=== PATIENT | female | born 1940 | race Caucasian/White ===

== ENCOUNTER → 2017-04-11 | Outpatient (CLI) | payer MEDICARE, BC ==
--- NOTE | 2017-04-11 13:01 | MR ---
EXAMINATION TYPE: MR brain wo/w con DATE OF EXAM: 04/11/2017 COMPARISON: Outside brain MRI report December 01, 2015. HISTORY: History of breast cancer with new onset confusion TECHNIQUE: Multiplanar, multisequence images of the brain and brainstem is performed without and with IV contras t, utilizing 10 mL intravenous MultiHance . FINDINGS: Diffusion weighted images demonstrate no evidence of a recent infarct or other diffusion ab normality. There is no worrisome extra-axial fluid collection. There is ventricular and sulcal promi nence consistent with diffuse mild age-related cerebral atrophy. There are focal and confluent areas of T2 hyperintensity throughout the white matter bilaterally. Lesions are nonspecific in appearance a nd distribution but most likely on basis of product of chronic small vessel ischemic change in patien t this age. There is small area of old infarct high posterior right frontal lobe near axial image 25 abutting central sulcus and larger area of encephalomalacia or infarct involving the inferior medial left occipital lobe near axial image 13 confirmed on coronal image 34. Midline structures demonstrate normal morphology. The craniocervical junction appears within normal limits. Post contrast images demonstrate no abnormal enhancement. The dural venous sinuses appear pa tent. The visualized sinuses are clear and the globes are intact. IMPRESSION: 1. There is mild diffuse age cerebral atrophy with moderate to severe chronic small vessel ischemic c hange as well as old infarcts noted, these old infarcts are detailed on outside MRI report. 2. No evidence of a recent infarct or suspicious enhancing intraparenchymal mass to suggest new metas tatic disease. A Document Only message has been documented for Campbell Dominguez MD in the [employer] system on 04/11/2017 12:58 PM, Message ID [id number].
== END | disposition home or self-care (01) ==
LOC: RADMRIMAIN 11:47
PROVIDERS: ATTEND Internal Medicine Hematology & Oncology
DX: C50.919 Malignant neoplasm of unspecified site of unspecified female breast (principal); G31.89 Other specified degenerative diseases of nervous system; I67.82 Cerebral ischemia; R41.0 Disorientation, unspecified
CPT/HCPCS: 70553; A9577

== ENCOUNTER → 2017-05-27 | Outpatient (CLI) | payer MEDICARE, BC ==
[2017-05-27 10:47] LABS: Blood Urea Nitrogen 12 mg/dL (7-17); Non-African American GFR(MDRD) >60 (>60 ml/min/1.73 sqM)
--- NOTE | 2017-05-27 13:17 | CT ---
EXAMINATION TYPE: CT ChestAbdPelvis w con DATE OF EXAM: 05/27/2017 COMPARISON: Prior CT abdomen pelvis 06/09/2015, prior chest 04/19/2015 HISTORY: Patient has no complaints at time of service. Follow up study for known breast CA. CT DLP: 994 mGycm Automated exposure control for dose reduction was used. CONTRAST: CT scan of the chest, abdomen and pelvis is performed with Oral Contrast and with IV Contrast, patien t injected with 100 mL of Omnipaque 300. FINDINGS: LUNGS: The lungs show a similar appearance, some improved aeration in the lingula, there is no concer earnest parenchymal mass or nodule identified. There is no pleural effusion or pneumothorax seen. The tracheobronchial tree is patent. MEDIASTINUM: There are no greater than 1 cm hilar or mediastinal lymph nodes. No pericardial effusi on is seen. AORTA: No significant abnormality is seen. OTHER: Bilateral breast prostheses are present status post mastectomies. LIVER/GB: Liver shows low attenuation likely due to hepatic steatosis. Gallbladder is normal.. PANCREAS: No significant abnormality is seen. SPLEEN: No significant abnormality is seen. ADRENALS: No significant abnormality is seen. KIDNEYS: Bilateral renal calcifications with associated cortical thinning again noted. REPRODUCTIVE ORGANS: Uterus and right ovary are absent, left ovary appears stable BOWEL: No significant abnormality is seen. FREE AIR: No Free Air visible. ASCITES: None seen. RETROPERITONEAL ADENOPATHY: No retroperitoneal adenopathy is seen. LYMPH NODES: No greater than 1 cm abdominal or pelvic lymph nodes are appreciated. URINARY BLADDER: No significant abnormality is seen. PELVIC ADENOPATHY: None visualized. OSSEOUS STRUCTURES: Similar findings of abnormal blastic appearance involving the fourth rib anterio rly on the left", postop changes again noted in the upper thoracic spine for sclerotic foci with lyti c appearance at T3 and T4. Suspect there is a joint effusion in the right hip which is an interval fi nding. There is a somewhat septated appearance, some extension along the iliopsoas into the right hem ipelvis, towards the iliac fossa. Sclerotic foci of the femoral heads with lucency may represent area s of osteonecrosis as on prior exam. Small umbilical hernia contains fat. IMPRESSION: Bone metastasis. Fluid attenuation in the right groin, correlate for any prior interventi on, cannot exclude infection. Postop changes.
--- NOTE | 2017-05-27 14:47 | NM ---
EXAMINATION TYPE: NM bone scan whole body DATE OF EXAM: 05/27/2017 COMPARISON: Prior chest abdomen and pelvis CT 05/27/2017 HISTORY: Breast cancer Delayed whole-body scanning was performed following the injection of 23.2 mCi Tc 99m MDP. Images acq uired 3 hours post injection. FINDINGS: Whole-body imaging performed as well as spot images. Mild increased uptake noted along anterior left fourth rib as well as within the thoracic spine corre lating to abnormal findings on CT. Soft tissue uptake is normal. Uptake within the cervical spine may be due to degenerative changes. There is uptake present within the L4 posterior elements may be rela raza to facet arthropathy. There is a mild scoliotic curvature of the thoracic lumbar spine. Uptake wi thin the hips may correlate to osteonecrosis within the proximal femurs. IMPRESSION: Findings could be indicative of metastatic disease. Additional findings above. There may be osteonecr osis present. Additional findings above.
== END ==
LOC: RADNMMAIN 10:13
PROVIDERS: ATTEND Internal Medicine Hematology & Oncology
DX: C50.919 Malignant neoplasm of unspecified site of unspecified female breast (principal); C79.51 Secondary malignant neoplasm of bone
CPT/HCPCS: 82565; 84520; 71260; 74177; 36415; 78306; A9503; Q9967